=== PATIENT | male | born 2000 ===

== ENCOUNTER 2024-08-28 19:25 | Emergency (ER) | payer BC ==
[2024-08-28] MEDS: Lidocaine 1% 10 ML MDV INJECT ONE (20:14)
== END 2024-08-28 20:34 | disposition home or self-care (01) ==
LOC: JD.ED 19:25
DX: S01.511A Laceration without foreign body of lip, initial encounter (principal); W22.8XXA Striking against or struck by other objects, initial encounter; Y93.67 Activity, basketball
CPT/HCPCS: 12011; 99282; J2003; 99283